=== PATIENT | male | born 1980 ===

== ENCOUNTER 2019-11-15 08:55 | Emergency (ER) | payer OTHER ==
[2019-11-15 08:59] VITALS: BP 118/77
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
[2019-11-15] MEDS ORDERED: IBUPROFEN 800 MG TAB PO ONE (09:43)
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
== END 2019-11-15 11:00 | disposition home or self-care (01) ==
LOC: ED 08:55
DX: S52.202A Unspecified fracture of shaft of left ulna, initial encounter for closed fracture (principal); F17.200 Nicotine dependence, unspecified, uncomplicated; V49.60XA Unspecified car occupant injured in collision with unspecified motor vehicles in traffic accident, initial encounter; Y93.89 Activity, other specified; Y92.009 Unspecified place in unspecified non-institutional (private) residence as the place of occurrence of the external cause; Y99.8 Other external cause status